=== PATIENT | male | born 1930 | race Asian ===

== ENCOUNTER 2017-11-19 11:15 | Inpatient (IN) | payer MEDICARE, OTHER, BC ==
[2017-11-19 12:10] LABS: ADD MAN DIFF? NO
[2017-11-19 12:11] LABS: WHITE BLOOD COUNT 10.7 10^3/ul (4.8-10.8)
[2017-11-19 12:11] LABS: BASOPHILS % 0.2 % (0.0-2.0); EOSINOPHILS # 0.1 10^3/ul (0.0-0.5); EOSINOPHILS % 0.8 % (0.0-7.0); HEMATOCRIT 31.4 % (42.0-52.0); HEMOGLOBIN 10.3 g/dl (14.0-18.0); LYMPHOCYTES # 1.2 10^3/ul (0.8-2.9); LYMPHOCYTES % 10.8 % (15.0-51.0); MEAN CORPUSCULAR HEMOGLOBIN 30.9 pg (29.0-33.0); MEAN CORPUSCULAR HGB CONC 32.8 g/dl (32.0-37.0); MEAN CORPUSCULAR VOLUME 94.3 fl (82.0-101.0); MEAN PLATELET VOLUME 8.8 fl (7.4-10.4); MONOCYTE # 0.9 10^3/ul (0.3-0.9); MONOCYTES % 8.4 % (0.0-11.0); NEUTROPHIL # 8.5 10^3/ul (1.6-7.5); NEUTROPHILS % 79.4 % (39.0-77.0); PLATELET COUNT 320 10^3/UL (140-415); RED BLOOD COUNT 3.33 10^6/ul (4.70-6.10); RED CELL DISTRIBUTION WIDTH 13.5 % (11.5-14.5)
[2017-11-19 12:35] LABS: ANION GAP 14 (8-16); BLOOD UREA NITROGEN 37 mg/dl (7-20); CALCIUM 8.6 mg/dl (8.4-10.2); CARBON DIOXIDE 23 mmol/L (21-31); CHLORIDE 110 mmol/L (97-110); CREATININE 1.99 mg/dl (0.61-1.24); GLUCOSE 108 mg/dl (70-220); POTASSIUM 4.2 mmol/L (3.5-5.1); SODIUM 143 mmol/L (135-144)
[2017-11-19] MEDS ORDERED: DOCUSATE SODIUM 100 MG CAP PO (18:30)
[2017-11-19] MEDS ORDERED: ZOLPIDEM 5 MG TAB PO (18:30)
[2017-11-19] MEDS ORDERED: morphine 2 MG INJ IV (18:30)
[2017-11-19] MEDS ORDERED: ONDANSETRON 4 MG INJ IV (18:30)
[2017-11-19] MEDS ORDERED: NACL 0.9% 3 ML SYG IV (18:30)
[2017-11-19] MEDS: HYDROCODONE/APAP (5/325) TAB PO (19:00)
[2017-11-19] MEDS: SOD CHLORIDE 0.9% 1,000 ML IV ×2 (19:00→23:52)
[2017-11-19] MEDS ORDERED: FUROSEMIDE 40 MG INJ (19:06)
[2017-11-19] MEDS: AMLODIPINE 5 MG TAB PO (19:31)
[2017-11-19] MEDS ORDERED: LABETALOL HCL 20MG INJ (21:13)
[2017-11-19] MEDS: QUETIAPINE 25 MG TAB PO (22:02)
[2017-11-19] MEDS: LABETALOL HCL 20MG INJ IV (22:04)
[2017-11-19] MEDS: HEPARIN 5,000 UNIT/0.5 ML VIAL SC (22:09)
[2017-11-20 05:14] LABS: BASOPHILS % 0.3 % (0.0-2.0); EOSINOPHILS # 0.1 10^3/ul (0.0-0.5); EOSINOPHILS % 1.4 % (0.0-7.0); HEMATOCRIT 28.1 % (42.0-52.0); HEMOGLOBIN 9.2 g/dl (14.0-18.0); LYMPHOCYTES # 1.2 10^3/ul (0.8-2.9); LYMPHOCYTES % 15.8 % (15.0-51.0); MEAN CORPUSCULAR HEMOGLOBIN 30.5 pg (29.0-33.0); MEAN CORPUSCULAR HGB CONC 32.7 g/dl (32.0-37.0); MEAN PLATELET VOLUME 9.1 fl (7.4-10.4); MONOCYTE # 0.6 10^3/ul (0.3-0.9); MONOCYTES % 7.8 % (0.0-11.0); NEUTROPHIL # 5.7 10^3/ul (1.6-7.5); NEUTROPHILS % 74.2 % (39.0-77.0); PLATELET COUNT 305 10^3/UL (140-415); RED BLOOD COUNT 3.02 10^6/ul (4.70-6.10); RED CELL DISTRIBUTION WIDTH 13.7 % (11.5-14.5)
[2017-11-20 05:14] LABS: WHITE BLOOD COUNT 7.7 10^3/ul (4.8-10.8)
[2017-11-20 05:15] LABS: ADD MAN DIFF? NO
[2017-11-20 05:38] LABS: INR 1.02; PROTIME 13.5 Sec (11.9-14.9); PT RATIO 1.1
[2017-11-20 05:53] LABS: ALANINE AMINOTRANSFERASE 31 IU/L (13-69); ALBUMIN 2.9 g/dl (3.3-4.9); ALBUMIN/GLOBULIN RATIO 0.87; ALKALINE PHOSPHATASE 103 IU/L (42-121); ANION GAP 14 (8-16); ASPARTATE AMINO TRANSFERASE 25 IU/L (15-46); BILIRUBIN,INDIRECT 0.3 mg/dl (0-1.1); BILIRUBIN,TOTAL 0.3 mg/dl (0.2-1.3); BLOOD UREA NITROGEN 34 mg/dl (7-20); CALCIUM 8.2 mg/dl (8.4-10.2); CARBON DIOXIDE 24 mmol/L (21-31); CHLORIDE 109 mmol/L (97-110); CREATININE 1.71 mg/dl (0.61-1.24); GLUCOSE 92 mg/dl (70-220); PHOSPHORUS 3.4 mg/dl (2.5-4.9); POTASSIUM 3.8 mmol/L (3.5-5.1); SODIUM 143 mmol/L (135-144); TOTAL PROTEIN 6.2 g/dl (6.1-8.1)
[2017-11-20] MEDS: PANTOPRAZOLE (EC) 40 MG TAB PO (06:00)
[2017-11-20 06:38] LABS: ADD UMIC YES; UR AMORPHOUS CRYSTAL FEW /HPF (NONE SEEN); UR ASCORBIC ACID NEGATIVE (NEGATIVE); UR BACTERIA FEW /HPF (NONE SEEN); UR BILIRUBIN (Dip) NEGATIVE (NEGATIVE); UR BLOOD (Dip) 1+ mg/dL (NEGATIVE); UR CLARITY CLOUDY (CLEAR); UR COLOR YELLOW (YELLOW); UR GLUCOSE (Dip) NEGATIVE (NEGATIVE); UR KETONES (Dip) NEGATIVE (NEGATIVE); UR LEUKOCYTE ESTERASE (Dip) 3+ Leu/ul (NEGATIVE); UR MUCUS FEW /HPF (NONE SEEN); UR NITRITE (Dip) POSITIVE (NEGATIVE); UR RBC 0 /HPF (0-5); UR SPECIFIC GRAVITY (Dip) 1.015 (1.003-1.030); UR TOTAL PROTEIN (Dip) 1+ mg/dl (NEGATIVE); UR UROBILINOGEN (Dip) NEGATIVE (NEGATIVE); UR WBC 64 /HPF (0-5)
[2017-11-20] MEDS: HEPARIN 5,000 UNIT/0.5 ML VIAL SC ×2 (09:08→21:00)
[2017-11-20] MEDS: SOD CHLORIDE 0.9% 1,000 ML IV ×2 (09:37→23:01)
[2017-11-20] MEDS: AMLODIPINE 5 MG TAB PO (09:37)
[2017-11-20] MEDS: ACETAMINOPHEN 325 MG TAB PO (14:28)
[2017-11-20] MEDS: PIPER-TAZO 3.375 GM IV (PMX) 100 ML IVPB ×2 (16:40→22:05)
[2017-11-20] MEDS: GENTAMICIN 0.3% 5 ML OPH BOTH EYES ×2 (17:31→21:01)
[2017-11-20] MEDS: QUETIAPINE 25 MG TAB PO (20:42)
[2017-11-21] MEDS: SOD CHLORIDE 0.9% 1,000 ML IV ×2 (03:03→18:03)
[2017-11-21 05:20] LABS: ADD MAN DIFF? NO
[2017-11-21 05:27] LABS: WHITE BLOOD COUNT 6.7 10^3/ul (4.8-10.8)
[2017-11-21 05:27] LABS: BASOPHILS % 0.2 % (0.0-2.0); EOSINOPHILS # 0.3 10^3/ul (0.0-0.5); EOSINOPHILS % 4.2 % (0.0-7.0); HEMATOCRIT 24.5 % (42.0-52.0); LYMPHOCYTES # 1.4 10^3/ul (0.8-2.9); LYMPHOCYTES % 21.2 % (15.0-51.0); MEAN CORPUSCULAR HEMOGLOBIN 30.3 pg (29.0-33.0); MEAN CORPUSCULAR HGB CONC 32.7 g/dl (32.0-37.0); MEAN CORPUSCULAR VOLUME 92.8 fl (82.0-101.0); MEAN PLATELET VOLUME 9.2 fl (7.4-10.4); MONOCYTE # 0.5 10^3/ul (0.3-0.9); MONOCYTES % 7.7 % (0.0-11.0); NEUTROPHIL # 4.4 10^3/ul (1.6-7.5); NEUTROPHILS % 66.4 % (39.0-77.0); PLATELET COUNT 270 10^3/UL (140-415); RED BLOOD COUNT 2.64 10^6/ul (4.70-6.10); RED CELL DISTRIBUTION WIDTH 13.6 % (11.5-14.5)
[2017-11-21 05:45] LABS: MAGNESIUM 1.9 mg/dl (1.7-2.5)
[2017-11-21 05:45] LABS: PHOSPHORUS 3.3 mg/dl (2.5-4.9)
[2017-11-21 05:48] LABS: ANION GAP 13 (8-16); BLOOD UREA NITROGEN 34 mg/dl (7-20); CALCIUM 7.7 mg/dl (8.4-10.2); CARBON DIOXIDE 21 mmol/L (21-31); CHLORIDE 113 mmol/L (97-110); CREATININE 1.85 mg/dl (0.61-1.24); GLUCOSE 79 mg/dl (70-220); POTASSIUM 3.8 mmol/L (3.5-5.1); SODIUM 143 mmol/L (135-144)
[2017-11-21] MEDS: PANTOPRAZOLE (EC) 40 MG TAB PO (06:28)
[2017-11-21] MEDS: PIPER-TAZO 3.375 GM IV (PMX) 100 ML IVPB ×3 (06:28→21:30)
[2017-11-21] MEDS: AMLODIPINE 5 MG TAB PO (09:00)
[2017-11-21] MEDS: HEPARIN 5,000 UNIT/0.5 ML VIAL SC ×2 (09:50→20:53)
[2017-11-21] MEDS: GENTAMICIN 0.3% 5 ML OPH BOTH EYES ×4 (09:51→20:53)
[2017-11-21] MEDS: ACETAMINOPHEN 325 MG TAB PO (20:52)
[2017-11-21] MEDS: QUETIAPINE 25 MG TAB PO (20:52)
[2017-11-21 23:35] LABS: IMMEDIATE SPIN CROSSMATCH 1 3
[2017-11-22] MEDS: PIPER-TAZO 3.375 GM IV (PMX) 100 ML IVPB ×2 (05:40→13:11)
[2017-11-22] MEDS: PANTOPRAZOLE (EC) 40 MG TAB PO (05:40)
[2017-11-22] MEDS: AMLODIPINE 5 MG TAB PO ×3 (06:19→20:06)
[2017-11-22] MEDS ORDERED: LIDOCAINE 2% (SDV) 5 ML INJ (07:00)
[2017-11-22] MEDS ORDERED: CEFAZOLIN 1 GM INJ (07:00)
[2017-11-22] MEDS: GENTAMICIN 0.3% 5 ML OPH BOTH EYES ×4 (08:01→20:07)
[2017-11-22] MEDS: DEXTROSE 5%-0.45% NACL 1,000 ML IV (08:01)
[2017-11-22] MEDS: HEPARIN 5,000 UNIT/0.5 ML VIAL SC ×2 (09:00→20:22)
[2017-11-22 09:18] LABS: ADD MAN DIFF? NO
[2017-11-22 09:29] LABS: BASOPHILS % 0.3 % (0.0-2.0); EOSINOPHILS # 0.1 10^3/ul (0.0-0.5); EOSINOPHILS % 1.8 % (0.0-7.0); HEMATOCRIT 39.4 % (42.0-52.0); HEMOGLOBIN 12.7 g/dl (14.0-18.0); LYMPHOCYTES # 0.9 10^3/ul (0.8-2.9); LYMPHOCYTES % 11.9 % (15.0-51.0); MEAN CORPUSCULAR HEMOGLOBIN 29.3 pg (29.0-33.0); MEAN CORPUSCULAR HGB CONC 32.2 g/dl (32.0-37.0); MEAN CORPUSCULAR VOLUME 90.8 fl (82.0-101.0); MEAN PLATELET VOLUME 8.8 fl (7.4-10.4); MONOCYTE # 0.5 10^3/ul (0.3-0.9); MONOCYTES % 6.8 % (0.0-11.0); NEUTROPHIL # 6.2 10^3/ul (1.6-7.5); NEUTROPHILS % 78.8 % (39.0-77.0); PLATELET COUNT 299 10^3/UL (140-415); RED BLOOD COUNT 4.34 10^6/ul (4.70-6.10); RED CELL DISTRIBUTION WIDTH 14.8 % (11.5-14.5)
[2017-11-22 09:29] LABS: WHITE BLOOD COUNT 7.8 10^3/ul (4.8-10.8)
[2017-11-22 09:41] LABS: ANION GAP 15 (8-16); BLOOD UREA NITROGEN 25 mg/dl (7-20); CALCIUM 8.2 mg/dl (8.4-10.2); CARBON DIOXIDE 20 mmol/L (21-31); CHLORIDE 113 mmol/L (97-110); CREATININE 1.69 mg/dl (0.61-1.24); GLUCOSE 87 mg/dl (70-220); SODIUM 144 mmol/L (135-144)
[2017-11-22 09:45] LABS: PHOSPHORUS 3.5 mg/dl (2.5-4.9)
[2017-11-22 09:45] LABS: MAGNESIUM 1.9 mg/dl (1.7-2.5)
[2017-11-22] MEDS ORDERED: ALBUTEROL 0.083% (NEB) 2.5 MG/3 ML AMP HHN (15:00)
[2017-11-22] MEDS ORDERED: EPHEDrine SULFATE 50 MG/5 ML SYG IV (15:00)
[2017-11-22] MEDS ORDERED: METOCLOPRAMIDE 10 MG INJ IV (15:00)
[2017-11-22] MEDS ORDERED: HYDROmorphONE (0.2 MG/ML) 10ML SYG IV ×3 (15:00)
[2017-11-22] MEDS ORDERED: KETOROLAC 30 MG INJ IV (15:00)
[2017-11-22] MEDS ORDERED: MIDAZOLAM 1 MG/ML 2 ML INJ IV (15:00)
[2017-11-22] MEDS ORDERED: DIPHENHYDRAMINE 50 MG INJ IV (15:00)
[2017-11-22] MEDS ORDERED: LABETALOL HCL 20MG INJ IV (15:00)
[2017-11-22] MEDS ORDERED: ONDANSETRON 4 MG INJ IV (15:00)
[2017-11-22] MEDS ORDERED: MEPERIDINE 25 MG INJ IV (15:00)
[2017-11-22] MEDS ORDERED: hydrALAzine 20 MG INJ IV (15:00)
[2017-11-22] MEDS ORDERED: FENTAnyl 50 MCG/ML VIAL (15:28)
[2017-11-22] MEDS ORDERED: MIDAZOLAM 1 MG/ML 2 ML INJ (15:28)
[2017-11-22] MEDS: POLYMYXIN/BACITRACIN 1L IRRIG IRR (15:38)
[2017-11-22] MEDS ORDERED: ROCURONIUM 50 MG INJ (16:38)
[2017-11-22] MEDS ORDERED: ETOMIDATE 20 MG INJ (16:38)
[2017-11-22] MEDS ORDERED: SUGAMMADEX SODIUM 200 MG/2 ML VIAL IV (16:38)
[2017-11-22] MEDS ORDERED: HYDROmorphONE 0.5 MG/0.5 ML SYG IV (17:00)
[2017-11-22] MEDS ORDERED: HYDROCODONE/APAP (5/325) TAB PO ×2 (17:00)
[2017-11-22] MEDS ORDERED: NACL 0.9% 3 ML SYG IV (17:00)
[2017-11-22 17:21] LABS: HEMATOCRIT 35.3 % (42.0-52.0); HEMOGLOBIN 11.7 g/dl (14.0-18.0)
[2017-11-22 17:45] LABS: ANION GAP 14 (8-16); BLOOD UREA NITROGEN 23 mg/dl (7-20); CALCIUM 8.2 mg/dl (8.4-10.2); CARBON DIOXIDE 22 mmol/L (21-31); CHLORIDE 110 mmol/L (97-110); GLUCOSE 97 mg/dl (70-220); POTASSIUM 3.8 mmol/L (3.5-5.1); SODIUM 142 mmol/L (135-144)
[2017-11-22] MEDS ORDERED: D5W-0.45 NACL + KCL 10 MEQ 1,000 ML IV (19:00)
[2017-11-22] MEDS: QUETIAPINE 25 MG TAB PO (20:09)
[2017-11-22] MEDS: CEFTRIAXONE 1 GM/NS 50 ML IVPB (20:09)
[2017-11-22] MEDS: POTASSIUM CHLORIDE 10 MEQ in DEXTROSE 5%-0.45% NACL 1,000 ML IV (21:30)
[2017-11-22] MEDS: CEFAZOLIN 1 GM/50 ML (PMX) 50 ML IVPB (23:20)
[2017-11-23] MEDS: POTASSIUM CHLORIDE 10 MEQ in DEXTROSE 5%-0.45% NACL 1,000 ML IV ×2 (04:03→12:05)
[2017-11-23] MEDS: PANTOPRAZOLE (EC) 40 MG TAB PO (05:53)
[2017-11-23 06:00] LABS: ADD MAN DIFF? NO
[2017-11-23 06:28] LABS: BASOPHILS % 0.2 % (0.0-2.0); EOSINOPHILS # 0.2 10^3/ul (0.0-0.5); HEMATOCRIT 33.4 % (42.0-52.0); HEMOGLOBIN 11.4 g/dl (14.0-18.0); LYMPHOCYTES # 0.8 10^3/ul (0.8-2.9); LYMPHOCYTES % 13.5 % (15.0-51.0); MEAN CORPUSCULAR HEMOGLOBIN 30.1 pg (29.0-33.0); MEAN CORPUSCULAR HGB CONC 34.1 g/dl (32.0-37.0); MEAN CORPUSCULAR VOLUME 88.1 fl (82.0-101.0); MEAN PLATELET VOLUME 9.1 fl (7.4-10.4); MONOCYTE # 0.6 10^3/ul (0.3-0.9); NEUTROPHIL # 4.4 10^3/ul (1.6-7.5); PLATELET COUNT 313 10^3/UL (140-415); RED BLOOD COUNT 3.79 10^6/ul (4.70-6.10); RED CELL DISTRIBUTION WIDTH 14.6 % (11.5-14.5)
[2017-11-23 06:41] LABS: ANION GAP 12 (8-16); BLOOD UREA NITROGEN 21 mg/dl (7-20); CALCIUM 7.9 mg/dl (8.4-10.2); CARBON DIOXIDE 22 mmol/L (21-31); CHLORIDE 110 mmol/L (97-110); CREATININE 1.47 mg/dl (0.61-1.24); GLUCOSE 112 mg/dl (70-220); POTASSIUM 3.9 mmol/L (3.5-5.1); SODIUM 140 mmol/L (135-144)
[2017-11-23] MEDS: CEFAZOLIN 1 GM/50 ML (PMX) 50 ML IVPB ×2 (07:00→15:13)
[2017-11-23 07:43] LABS: PHOSPHORUS 2.9 mg/dl (2.5-4.9)
[2017-11-23 07:43] LABS: MAGNESIUM 1.8 mg/dl (1.7-2.5)
[2017-11-23] MEDS: GENTAMICIN 0.3% 5 ML OPH BOTH EYES ×4 (09:20→20:53)
[2017-11-23] MEDS: ENOXAPARIN 30 MG/0.3 ML SYG SC (09:20)
[2017-11-23] MEDS: AMLODIPINE 5 MG TAB PO ×2 (09:21→20:53)
[2017-11-23] MEDS: HYDROCODONE/APAP (5/325) TAB PO (15:14)
[2017-11-23] MEDS: CEFTRIAXONE 1 GM/NS 50 ML IVPB (20:53)
[2017-11-23] MEDS: QUETIAPINE 25 MG TAB PO (20:53)
[2017-11-24 05:44] LABS: ADD MAN DIFF? NO
[2017-11-24 05:51] LABS: BASOPHILS % 0.1 % (0.0-2.0); EOSINOPHILS # 0.3 10^3/ul (0.0-0.5); EOSINOPHILS % 3.1 % (0.0-7.0); HEMATOCRIT 31.1 % (42.0-52.0); HEMOGLOBIN 10.4 g/dl (14.0-18.0); LYMPHOCYTES # 1.3 10^3/ul (0.8-2.9); LYMPHOCYTES % 14.7 % (15.0-51.0); MEAN CORPUSCULAR HEMOGLOBIN 29.7 pg (29.0-33.0); MEAN CORPUSCULAR HGB CONC 33.4 g/dl (32.0-37.0); MEAN CORPUSCULAR VOLUME 88.9 fl (82.0-101.0); MEAN PLATELET VOLUME 9.3 fl (7.4-10.4); MONOCYTES % 10.9 % (0.0-11.0); NEUTROPHIL # 6.3 10^3/ul (1.6-7.5); NEUTROPHILS % 70.8 % (39.0-77.0); PLATELET COUNT 286 10^3/UL (140-415); RED CELL DISTRIBUTION WIDTH 14.6 % (11.5-14.5)
[2017-11-24 06:09] LABS: ANION GAP 12 (8-16); BLOOD UREA NITROGEN 21 mg/dl (7-20); CALCIUM 7.7 mg/dl (8.4-10.2); CARBON DIOXIDE 22 mmol/L (21-31); CHLORIDE 107 mmol/L (97-110); CREATININE 1.61 mg/dl (0.61-1.24); GLUCOSE 91 mg/dl (70-220); POTASSIUM 3.8 mmol/L (3.5-5.1); SODIUM 137 mmol/L (135-144)
[2017-11-24] MEDS: LANSOPRAZOLE 30 MG CAP PO (06:09)
[2017-11-24 06:29] LABS: PHOSPHORUS 2.4 mg/dl (2.5-4.9)
[2017-11-24 06:29] LABS: MAGNESIUM 1.8 mg/dl (1.7-2.5)
[2017-11-24] MEDS: AMLODIPINE 5 MG TAB PO ×2 (09:33→20:45)
[2017-11-24] MEDS: GENTAMICIN 0.3% 5 ML OPH BOTH EYES ×4 (09:34→20:44)
[2017-11-24] MEDS: ENOXAPARIN 30 MG/0.3 ML SYG SC (09:38)
[2017-11-24] MEDS: CEFTRIAXONE 1 GM/NS 50 ML IVPB (20:44)
[2017-11-24] MEDS: QUETIAPINE 25 MG TAB PO (20:44)
[2017-11-25 05:37] LABS: ADD MAN DIFF? NO
[2017-11-25 05:41] LABS: BASOPHILS % 0.1 % (0.0-2.0); EOSINOPHILS # 0.3 10^3/ul (0.0-0.5); EOSINOPHILS % 3.4 % (0.0-7.0); HEMATOCRIT 28.4 % (42.0-52.0); HEMOGLOBIN 9.7 g/dl (14.0-18.0); LYMPHOCYTES # 1.1 10^3/ul (0.8-2.9); LYMPHOCYTES % 13.5 % (15.0-51.0); MEAN CORPUSCULAR HEMOGLOBIN 30.2 pg (29.0-33.0); MEAN CORPUSCULAR HGB CONC 34.2 g/dl (32.0-37.0); MEAN CORPUSCULAR VOLUME 88.5 fl (82.0-101.0); MEAN PLATELET VOLUME 9.2 fl (7.4-10.4); MONOCYTE # 0.8 10^3/ul (0.3-0.9); MONOCYTES % 10.4 % (0.0-11.0); NEUTROPHIL # 5.7 10^3/ul (1.6-7.5); NEUTROPHILS % 71.8 % (39.0-77.0); PLATELET COUNT 315 10^3/UL (140-415); RED BLOOD COUNT 3.21 10^6/ul (4.70-6.10); RED CELL DISTRIBUTION WIDTH 14.4 % (11.5-14.5)
[2017-11-25 05:41] LABS: WHITE BLOOD COUNT 7.9 10^3/ul (4.8-10.8)
[2017-11-25] MEDS: MAGNESIUM HYDROXIDE 30ML CUP PO (05:44)
[2017-11-25] MEDS: LANSOPRAZOLE 30 MG CAP PO (05:44)
[2017-11-25 06:06] LABS: PHOSPHORUS 2.7 mg/dl (2.5-4.9)
[2017-11-25 06:09] LABS: ANION GAP 12 (8-16); BLOOD UREA NITROGEN 25 mg/dl (7-20); CALCIUM 7.8 mg/dl (8.4-10.2); CARBON DIOXIDE 24 mmol/L (21-31); CHLORIDE 106 mmol/L (97-110); CREATININE 1.62 mg/dl (0.61-1.24); GLUCOSE 90 mg/dl (70-220); POTASSIUM 3.5 mmol/L (3.5-5.1); SODIUM 138 mmol/L (135-144)
[2017-11-25] MEDS: GENTAMICIN 0.3% 5 ML OPH BOTH EYES ×4 (09:03→22:01)
[2017-11-25] MEDS: AMLODIPINE 5 MG TAB PO ×2 (09:03→22:01)
[2017-11-25] MEDS: ENOXAPARIN 30 MG/0.3 ML SYG SC (09:04)
[2017-11-25] MEDS: QUETIAPINE 25 MG TAB PO (22:01)
[2017-11-25] MEDS: CEFTRIAXONE 1 GM/NS 50 ML IVPB (22:06)
[2017-11-26] MEDS: MAGNESIUM HYDROXIDE 30ML CUP PO (01:34)
[2017-11-26 05:17] LABS: ADD MAN DIFF? NO
[2017-11-26 05:21] LABS: WHITE BLOOD COUNT 9.4 10^3/ul (4.8-10.8)
[2017-11-26 05:21] LABS: BASOPHILS % 0.1 % (0.0-2.0); EOSINOPHILS # 0.3 10^3/ul (0.0-0.5); HEMATOCRIT 29.4 % (42.0-52.0); HEMOGLOBIN 9.8 g/dl (14.0-18.0); LYMPHOCYTES # 1.3 10^3/ul (0.8-2.9); LYMPHOCYTES % 13.9 % (15.0-51.0); MEAN CORPUSCULAR HEMOGLOBIN 29.4 pg (29.0-33.0); MEAN CORPUSCULAR HGB CONC 33.3 g/dl (32.0-37.0); MEAN CORPUSCULAR VOLUME 88.3 fl (82.0-101.0); MEAN PLATELET VOLUME 8.8 fl (7.4-10.4); MONOCYTE # 0.7 10^3/ul (0.3-0.9); MONOCYTES % 7.7 % (0.0-11.0); NEUTROPHIL # 7.1 10^3/ul (1.6-7.5); NEUTROPHILS % 74.9 % (39.0-77.0); PLATELET COUNT 397 10^3/UL (140-415); RED BLOOD COUNT 3.33 10^6/ul (4.70-6.10); RED CELL DISTRIBUTION WIDTH 14.1 % (11.5-14.5)
[2017-11-26 05:56] LABS: MAGNESIUM 2.2 mg/dl (1.7-2.5)
[2017-11-26 05:56] LABS: PHOSPHORUS 2.9 mg/dl (2.5-4.9)
[2017-11-26 06:19] LABS: ANION GAP 12 (8-16); BLOOD UREA NITROGEN 33 mg/dl (7-20); CARBON DIOXIDE 26 mmol/L (21-31); CHLORIDE 106 mmol/L (97-110); CREATININE 1.59 mg/dl (0.61-1.24); GLUCOSE 112 mg/dl (70-220); POTASSIUM 3.6 mmol/L (3.5-5.1); SODIUM 140 mmol/L (135-144)
[2017-11-26] MEDS: LANSOPRAZOLE 30 MG CAP PO (06:35)
[2017-11-26] MEDS: GENTAMICIN 0.3% 5 ML OPH BOTH EYES ×4 (09:05→21:23)
[2017-11-26] MEDS: AMLODIPINE 5 MG TAB PO ×2 (09:05→21:22)
[2017-11-26] MEDS: ENOXAPARIN 30 MG/0.3 ML SYG SC (09:06)
[2017-11-26] MEDS: CEFTRIAXONE 1 GM/NS 50 ML IVPB (21:21)
[2017-11-26] MEDS: QUETIAPINE 25 MG TAB PO (21:22)
[2017-11-27] MEDS: LANSOPRAZOLE 30 MG CAP PO (06:26)
[2017-11-27] MEDS: AMLODIPINE 5 MG TAB PO (08:51)
[2017-11-27] MEDS: GENTAMICIN 0.3% 5 ML OPH BOTH EYES ×3 (08:51→16:15)
[2017-11-27] MEDS: ENOXAPARIN 30 MG/0.3 ML SYG SC (08:52)
== END 2017-11-27 20:15 | DRG 470 ==
LOC: E/R 11:15 → MS1 15:34
PROC: 0SRR0JA Replacement of Right Hip Joint, Femoral Surface with Synthetic Substitute, Uncemented, Open Approach (ICD-10-PCS; principal; 2017-11-22 14:00)
PROC: 30233N1 Transfusion of Nonautologous Red Blood Cells into Peripheral Vein, Percutaneous Approach (ICD-10-PCS; 2017-11-22 15:01)
DX: S72.011A Unspecified intracapsular fracture of right femur, initial encounter for closed fracture (principal); E44.0 Moderate protein-calorie malnutrition; F03.90 Unspecified dementia, unspecified severity, without behavioral disturbance, psychotic disturbance, mood disturbance, and anxiety; N39.0 Urinary tract infection, site not specified; Z68.1 Body mass index [BMI] 19.9 or less, adult; D64.9 Anemia, unspecified; I12.9 Hypertensive chronic kidney disease with stage 1 through stage 4 chronic kidney disease, or unspecified chronic kidney disease; N18.9 Chronic kidney disease, unspecified; I35.0 Nonrheumatic aortic (valve) stenosis; F99 Mental disorder, not otherwise specified; I70.90 Unspecified atherosclerosis; Y92.009 Unspecified place in unspecified non-institutional (private) residence as the place of occurrence of the external cause; W07.XXXA Fall from chair, initial encounter
CPT/HCPCS: 36415; 36430; 71045; 72170; 72192; 80048; 80053; 81001; 83735; 84100; 85014; 85018; 85025; 85610; 86850; 86900; 86901; 86920; 87081; 87086; 88305; 88311; 93005; 93306; 96361; 96372; 96374; 97110; 97163; 97530; 99285-25